=== PATIENT | female | born 1985 | race Caucasian/White ===

== ENCOUNTER 2017-01-07 19:51 | Emergency (ER) | payer OTHER ==
[2017-01-07] MEDS ORDERED: ASPIRIN 81 MG (BABY) CHEWABLE TABLET PO ONE (20:04)
--- NOTE | 2017-01-07 20:07 | EKG ---
[address] [place] [address] Measurements Intervals [place] Rate: 80 P: 36 MI: 151 QRS: 32 QRSD: 108 T: 15 QT: 382 QTc: 418 Interpretive Statements SINUS RHYTHM INCOMPLETE RIGHT BUNDLE BRANCH BLOCK [90+ ms QRS DURATION, TERMINAL R IN V1/V2, 40+ ms S IN I/aVL/V4/V5/V6] No previous ECG available for comparison and no acute injury pattern. Electronically Signed On 01-08-17 10:37:42 MST by Won Cherry MD [email or web address]
[2017-01-07 20:12] VITALS: RESP 20; TEMP 97.4
[2017-01-07] MEDS: NORMAL SALINE 10 ML SYRINGE FLUSH IVP PRN ×2 (20:15→21:08)
[2017-01-07 20:22] LABS: BASOPHILS % (AUTO) 0.8 % (0-1); EOSINOPHILS % (AUTO) 1.9 % (0-8); HEMATOCRIT 40.6 % (37.0-47.0); HEMOGLOBIN 13.8 g/dL (12.0-16.0); IMM GRAN % (AUTO) 0.4 % (0-5); IMM GRAN# (AUTO) 0.05 10*3/UL; LYMPHOCYTES # (AUTO) 3.86 10*3/uL; LYMPHOCYTES % (AUTO) 32.7 % (10-50); MEAN CORPUSCULAR HEMOGLOBIN 27.9 PG (27-31); MEAN PLATELET VOLUME 10.2 FL (7.4-12.2); MONOCYTES # (AUTO) 0.92 10*3/UL (0.3-0.8); MONOCYTES % (AUTO) 7.8 % (5-15); NEUTROPHILS # (AUTO) 6.66 10*3/UL; NEUTROPHILS % (AUTO) 56.4 % (50-80); RDW COEFFICIENT OF VARIATION 14.4 % (11.5-14.5); RED BLOOD COUNT 4.94 10^6/uL (4.20-5.40); WHITE BLOOD COUNT 11.82 10^3/uL (4.8-10.8)
[2017-01-07 20:24] LABS: PLATELET MORPHOLOGY COMMENT NORMAL MORPHOLOGY (NORM)
--- NOTE | 2017-01-07 20:29 | PDOC ---
Chest Pain HPI - General Chief Complaint: Chest Pain Stated Complaint: CHEST PAIN WITH INTERMITTENT SOB Date Seen by Provider: 01/07/17 Time Seen by Provider: 20:00 Source: Patient Exam Limitations: POSITIVE: No limitations Treatment Prior to Arrival: REPORTS: None Nurse's Notes Reviewed & Considered: Yes - History of Present Illness Initial Comments: The patient is a 31-year-old female who presents to the emergency department with left-sided chest pain. She states that she had onset of pain 2-3 days ago. The pain is located in her left upper chest. This pain is worsened when she holds her arm back or when she is laying on either side. The pain is also worsened somewhat with taking deep breath. She denies any associated palpitation, increased shortness of breath, recent cough, nausea or vomiting or any other associated complaints. She states she has had some degree of constant pain for the past several days. She does not have any known history of heart problems. She also denies diabetes, hyperlipidemia or hypertension. She does not have any history of blood clots. She states that she occasionally gets some swelling in her legs primarily in her left leg. - Patient Home Medications Home Medications: Home Medications Escitalopram Oxalate 1 tab PO DAILY #90 tab 01/05/17 Ibuprofen 1 tab PO Q8H PRN #90 tab 01/05/17 Montelukast Sodium [Singulair] 1 tab PO DAILY #30 tab 01/05/17 - Patient Allergies Allergies/Adverse Reactions: Allergies Allergy/AdvReac Type Severity Reaction Status Date / Time No Known Drug Allergies Allergy NOT Verified 01/07/17 19:59 APPLICABLE Past Medical History - heen HEENT History: Denies History Cardiovascular History: Denies History Respiratory History: Denies History Gastrointestinal History: Denies History Genitourinary History: Denies History Endocrine History: Denies History Musculoskeletal History: Fibromyalgia Prosthesis or Implant: No Neurological History: Denies History Blood Disorders: Denies History Psychiatric History: Depression, Anxiety Disorders Female Reproductive History: Other (please comment) Additional Female Reproductive History: Right oopharectomy Obstetrical History: Denies History Cancer History: Denies History In Past Year Been Physically Harmed or Verbally Threatened: No History of MDRO: No Tobacco Use: Never Smoker Alcohol Use: None Substance Use Type: None Previous Surgical History: Yes Type / Date of Surgery: Tonsilectomy. oopharectomy Anesthesia Reactions: No Significant Family History: No pertinent family hx Past Medical History Reviewed: Reviewed - No Changes ROS - Limitations ROS Limitations: No Limitations Constitution: DENIES: Chills, Fever Cardiovascular: REPORTS: Chest Pain. DENIES: Heart Racing, Heart Palpitations, Blood Pressure Problem Respiratory: REPORTS: Hurts To Breathe. DENIES: Cough Non Productive, Cough Productive, Shortness Of Breath Neurological: REPORTS: Denies Neuro Symptoms Gastrointestinal: REPORTS: Other (Some bloating). DENIES: Abdominal Pain, Nausea, Vomitting Musculoskeletal: REPORTS: Lower Extremity Swelling (Occasional lower extremity swelling, left leg greater than the right). DENIES: Calf Pain Eyes: REPORTS: Denies Symptoms ENT: REPORTS: Denies Symptoms, Congestion (Chronic). DENIES: Sore Throat Skin: DENIES: Rash Chest Pain PE - General Appearance General Appearance: REPORTS: Alert, No Acute Distress - HEENT HEENT: POSITIVE: Head Inspection Nml, Eyes Inspection Nml, Pharynx Inspect. Nml - Respiratory Respiratory: REPORTS: No Respiratory Distress, Breath Sounds Normal, Other (She does have tenderness in the left upper anterior chest wall over the costosternal region) - Cardiovascular Cardiovascular: REPORTS: Regular Rate and Rhythm, Heart Sounds Normal Peripheral Pulses: Radial (R): 2+, Radial (L): 2+ - Abdomen Abdomen: Soft: (All Quadrants), Denies Tenderness: (All Quadrants) - Skin Skin: REPORTS: Intact, No Rash - Extremities Extremity: Normal ROM: (All Extremities), Normal Inspection: (All Extremities) - Neurological / Psychological Neurological: POSITIVE: Oriented X3, Motor Normal, Sensation Normal Chest Pain Progress - Results Reviewed by me Xrays/CTs/US Reviewed by me: Yes Discussed with Radiologist: Yes Radiology Findings: Chest x-ray is limited secondary to body habitus however reveals no obvious acute findings per radiologist. Lab Results Reviewed: Yes Lab Results:: Laboratory Results 01/07/17 Range/Units 20:15 WBC 11.82 H (4.8-10.8) 10^3/uL RBC 4.94 (4.20-5.40) 10^6/uL Hgb 13.8 (12.0-16.0) g/dL Hct 40.6 (37.0-47.0) % MCV 82.2 (81-99) FL MCH 27.9 (27-31) PG MCHC 34.0 (33-37) g/dL RDW Std Deviation 42.1 (39-50) fL RDW Coeff of Temo 14.4 (11.5-14.5) % Plt Count 312 (140-350) 10*3/uL MPV 10.2 (7.4-12.2) FL Immature Gran % (Auto) 0.4 (0-5) % Neut % (Auto) 56.4 (50-80) % Lymph % (Auto) 32.7 (10-50) % [place] % (Auto) 7.8 (5-15) % Eos % (Auto) 1.9 (0-8) % Baso % (Auto) 0.8 (0-1) % Immature Gran # (Auto) 0.05 10*3/UL Neut # (Auto) 6.66 10*3/UL Lymph # (Auto) 3.86 10*3/uL [place] # (Auto) 0.92 H (0.3-0.8) 10*3/UL Eos # (Auto) 0.23 10*3/UL Baso # (Auto) 0.10 10*3/UL WBC Morphology Comment Normal morphology (NORM) Plt Morphology Comment Normal morphology (NORM) RBC Morph Comment Normal morphology (NORM) D-Dimer < 0.19 (0.00-0.59) mg/L Sodium 140 (135-145) meq/L Potassium 4.2 (3.8-5.2) meq/L Chloride 103 (98-112) meq/L Carbon Dioxide 26 (23-33) meq/L Anion Gap 11 (5-20) BUN 13 (7-22) mg/dL Creatinine 0.7 (0.50-1.20) mg/dL Estimated GFR > 60 (>60 ml/min/1.73m(2)) BUN/Creatinine Ratio 18.57 (6-20) Glucose 93 (78-110) mg/dL Calculated Osmolality 289.0 (267-292) mOsm/kg Calcium 9.9 (8.7-10.7) mg/dL Total Bilirubin 0.6 (0.3-1.2) mg/dL AST 44 H (8-39) IU/L ALT 54 H (9-52) IU/L Alkaline Phosphatase 81 (38-126) IU/L CK-MB (CK-2) 7.51 H (0.00-5.00) NG/DL Troponin I < 0.012 (< 0.040) ng/mL Total Protein 8.0 (6.1-8.0) g/dL Albumin 4.5 (3.5-4.8) g/dL Globulin 3.5 (2.50-4.10) g/dL Albumin/Globulin Ratio 1.20 L (1.3-2.0) mg/g EKG Interpreted/Reviewed By Me:: Yes EKG Interpretation:: POSITIVE: Normal Sinus Rhythm, Normal Rate, Normal Intervals, Normal Advance, Normal QRS, Normal ST/T - Patient's Progress MDM / ED Course: The initial EKG shows normal sinus rhythm with no acute ST segment or T-wave changes. She did receive aspirin per chest pain protocol. Her troponin and d- dimer are normal and other blood work is essentially unremarkable except for mildly elevated transaminases. Her presentation is consistent with costochondritis. She did receive Toradol 15 mg IV. She is advised to take ibuprofen 600 mg every 6 hours as needed for pain. She will return to the emergency room if increased pain, shortness of breath, productive cough, any worsening or change in symptoms. Follow-up with primary care if no improvement in 3-5 days. - Consult Counseled: POSITIVE: Patient, RE: Lab Results, RE: Radiology Results, RE: DX, RE : Need for F/U Patient Care Time - Estimated PCT Patient Care Time (In Minutes): 25 Vital Signs - VS Reviewed Vital Signs Reviewed: Yes Discharge Clinical Impression: Chest wall pain, Costochondritis Condition: Stable Patient Instructions Given at Discharge: Costochondritis (ED) Additional Instructions: There was no evidence of your heart causing the current pain and there was no evidence of blood clot. The pain is most consistent with inflammation of the joint where the ribs look into the sternum. Recommend ibuprofen 600 mg every 6 hours as needed for pain. Take with food. Return to the emergency room if increased pain or shortness of breath, fever or productive cough, any worsening or change in symptoms. Recommend follow-up with primary care if continued pain in 3-5 days. Follow Up With: ZOFIA BERRIOS [Primary Care Provider] -
[2017-01-07 20:30] LABS: ASPARTATE AMINO TRANSFERASE 44 IU/L (8-39); BILIRUBIN,TOTAL 0.6 mg/dL (0.3-1.2); BLOOD UREA NITROGEN 13 mg/dL (7-22); BUN/CREATININE RATIO 18.57 (6-20); CALCIUM 9.9 mg/dL (8.7-10.7); CHLORIDE 103 meq/L (98-112); CREATININE 0.7 mg/dL (0.50-1.20); EST GLOMERULAR FILTRATION > 60 (>60 ml/min/1.73m(2)); GLUCOSE 93 mg/dL (78-110); POTASSIUM 4.2 meq/L (3.8-5.2); SODIUM 140 meq/L (135-145)
[2017-01-07] MEDS ORDERED: KETOROLAC 15 MG/1 ML VIAL IVP ONE (20:41)
--- NOTE | 2017-01-07 20:41 | DI ---
AP CHEST X-RAY, 01/07/2017 8:04 PM : Clinical History: Chest pain. Previous Exam: None at this facility. The patient is severely morbidly obese. This detracts from the overall quality and significantly limi ts the diagnostic quality of the exam with respect to fine detail structures. There is no acute soft tissue or bony abnormality. Heart size is probably normal based on the size of the patient. Lungs are clear. Mediastinal structures are normal. There are no pulmonary nodules. Reading: Normal chest x-ray based on the limitations imposed by the size of the patient.
[2017-01-07 20:42] LABS: CREATINE KINASE MB 7.51 NG/DL (0.00-5.00)
[2017-01-07 20:43] LABS: TROPONIN I < 0.012 ng/mL (< 0.040)
== END 2017-01-07 21:15 | disposition home or self-care (01) ==
LOC: ER 19:51
DX: R07.89 Other chest pain (principal); M94.0 Chondrocostal junction syndrome [Tietze]; R06.02 Shortness of breath
CPT/HCPCS: 71010; 80053; 82553; 84484; 85025; 85379; 93005; 93010; 96374; 99284; J1885

== ENCOUNTER → 2017-01-25 | Outpatient (CLI) | payer OTHER | LOC: MOB LAB 11:38 | PROVIDERS: ATTEND Physician Assistant | DX: R10.84 Generalized abdominal pain (principal) | CPT/HCPCS: 87088 ==

== ENCOUNTER → 2017-01-25 | Outpatient (CLI) | payer OTHER ==
[2017-01-25 13:26] LABS: BASOPHILS # (AUTO) 0.06 10*3/UL; BASOPHILS % (AUTO) 0.6 % (0-1); EOSINOPHILS # (AUTO) 0.25 10*3/UL; EOSINOPHILS % (AUTO) 2.4 % (0-8); HEMATOCRIT 42.8 % (37.0-47.0); HEMOGLOBIN 14.3 g/dL (12.0-16.0); LYMPHOCYTES # (AUTO) 3.02 10*3/uL; MEAN CORPUSCULAR HEMOGLOBIN 27.8 PG (27-31); MEAN CORPUSCULAR HGB CONC 33.4 g/dL (33-37); MEAN PLATELET VOLUME 10.3 FL (7.4-12.2); MONOCYTES # (AUTO) 0.64 10*3/UL (0.3-0.8); MONOCYTES % (AUTO) 6.1 % (5-15); NEUTROPHILS # (AUTO) 6.56 10*3/UL; RED BLOOD COUNT 5.15 10^6/uL (4.20-5.40)
[2017-01-25 13:30] LABS: PLATELET MORPHOLOGY COMMENT NORMAL MORPHOLOGY (NORM); RBC MORPHOLOGY COMMENT NORMAL MORPHOLOGY (NORM); WBC MORPHOLOGY COMMENT NORMAL MORPHOLOGY (NORM)
[2017-01-25 13:35] LABS: BLOOD UREA NITROGEN 13 mg/dL (7-22); BUN/CREATININE RATIO 18.57 (6-20); C-REACTIVE PROTEIN 2.4 mg/dL (0.0-0.9); CALCIUM 9.8 mg/dL (8.7-10.7); EST GLOMERULAR FILTRATION > 60 (>60 ml/min/1.73m(2)); LIPASE 131 IU/L (23-300); SERUM ALBUMIN 4.7 g/dL (3.5-4.8)
--- NOTE | 2017-01-25 14:22 | DI ---
XR ABDOMEN KUB UPRIGHT,01/25/2017 12:54 PM: Clinical History: Abdominal pain Previous Exam: None at this facility. Findings: 5 views of the abdomen are obtained, and demonstrate a nonobstructive bowel gas pattern. There is no subdiaphragmatic free air. There are no pathologic calcifications. No fractures are seen. Impression: No acute disease.
== END ==
LOC: MOB RAD 13:12
PROVIDERS: ATTEND Physician Assistant
DX: R10.84 Generalized abdominal pain (principal)
CPT/HCPCS: 36415; 74020; 80053; 83690; 84439; 84443; 85025; 86140; 87088

== ENCOUNTER → 2017-01-26 | Outpatient (CLI) | payer OTHER ==
--- NOTE | 2017-01-26 08:40 | DI ---
US ABDOMEN LIMITED,01/26/2017 7:41 AM: Clinical History: Abdominal pain Previous Exam: None at this facility. Findings: Multiple grayscale and color Doppler sonographic images are obtained through the abdomen demonstratin g diffuse fatty infiltration of the liver. The gallbladder contains multiple stones and the gallbladd er wall measures 3 mm. Negative sonographic Romo's sign is obtained. The common bile duct measures 5 mm. The right kidney measures 10.9 cm in length without hydronephrosis nor nephrolithiasis. The renal cor shira is normal. The aorta is also within normal limits. The pancreas is not well seen. Impression: 1. Cholelithiasis. 2. Fatty liver.
[2017-01-28 08:46] LABS: TTG AB IGA <1.2 U/mL (())
[2017-02-01 22:01] LABS: IGA, SERUM 100 mg/dL (61 - 356)
== END ==
LOC: US 07:35
PROVIDERS: ATTEND Physician Assistant
DX: R10.84 Generalized abdominal pain (principal); K76.0 Fatty (change of) liver, not elsewhere classified; K80.20 Calculus of gallbladder without cholecystitis without obstruction
CPT/HCPCS: 36415; 76705; 82784; 83516; 86256; 86816

== ENCOUNTER 2017-02-08 06:50 | Day surgery (SDC) | payer OTHER ==
[~2017-02-08 06:50] MED LIST: ATROPINE SULFATE 0.4 MG/1 ML VIAL IVP PRN; HYDROmorphone 2 MG/1 ML IVP PRN; LIDOCAINE W/ SODIUM BICARB 0.5 ML SYR ONE; Lactated Ringers 1,000 ML PRIMARY IV ONE; NORMAL SALINE 10 ML SYRINGE FLUSH IVP PRN; ONDANSETRON 4 MG/2 ML VIAL IVP PRN; Ondansetron ODT Tab 8 MG TAB PO PRN; fentaNYL Inj 100 MCG/2 ML VIAL IVP PRN
[2017-02-08] MEDS ORDERED: Lactated Ringers 1,000 ML PRIMARY IV SCH ×3 (07:00→09:45)
[2017-02-08] MEDS ORDERED: Sodium Chloride 0.9% vial 50 ML ONE (07:17)
[2017-02-08] MEDS ORDERED: BUPIVACAINE 0.25% W/ EPI - 10 ML VIAL ONE (07:17)
[2017-02-08] MEDS ORDERED: Iothalamate Meglumine 30 ML VIAL IV ONE (07:17)
[2017-02-08] MEDS ORDERED: MIDAZOLAM 5 MG/1 ML ONE (07:18)
[2017-02-08] MEDS ORDERED: LIDOCAINE MPF 2% - 5 ML (20 MG/1 ML) ONE ×2 (07:18→09:16)
[2017-02-08] MEDS ORDERED: fentaNYL Inj 250 MCG/5 ML VIAL ONE (07:18)
[2017-02-08] MEDS ORDERED: Sodium Chloride 0.9% vial 10 ML ONE (07:20)
[2017-02-08] MEDS ORDERED: ROCURONIUM 10 MG/1 ML - 5 ML VIAL IVP ONE (07:21)
[2017-02-08] MEDS ORDERED: ceFAZolin Inj 3 GM in Sodium Chloride 0.9% 100 ML IV ONE (07:30)
[2017-02-08] MEDS ORDERED: FAMOTIDINE 20 MG/2 ML VIAL IVP ONE (07:44)
[2017-02-08] MEDS ORDERED: SUCCINYLCHOLINE CHLORIDE 20 MG/1 ML - 10 ML ONE (07:58)
[2017-02-08] MEDS ORDERED: KETAMINE 100 MG/1 ML - 5 ML ONE (07:59)
[2017-02-08] MEDS ORDERED: DEXAMETHASONE PF 10 MG/1 ML VIAL ONE (08:23)
[2017-02-08] MEDS ORDERED: ONDANSETRON 4 MG/2 ML VIAL ONE (08:50)
[2017-02-08] MEDS ORDERED: NEOSTIGMINE 1 MG/1 ML - 10 ML ONE (08:50)
[2017-02-08] MEDS ORDERED: GLYCOPYRROLATE 0.2 MG/1 ML VIAL ONE (08:50)
[2017-02-08] MEDS ORDERED: KETOROLAC 30 MG/1 ML VIAL ONE (08:58)
[2017-02-08] MEDS ORDERED: SUGAMMADEX SODIUM 200 MG/2 ML VIAL IV ONE (09:11)
--- NOTE | 2017-02-08 09:34 | GEN.OPNOTE ---
Operative Note Surgery Date: 02/08/17 Preoperative Diagnosis: Chronic cholecystitis and cholelithiasis. Postoperative Diagnosis: Chronic cholecystitis and cholelithiasis. Procedure: Laparoscopic cholecystectomy with intraoperative cholangiogram. Surgeon: Leonardo Sheffield MD Front End Assistant: Joon Multani MD Anesthesia Provider: Edith Silva CRNA Anesthesia Type: General Estimated Blood Loss (mL): 10 Fluids: 1900 mL of crystalloid. 3 g of IV Ancef at the start of the procedure. 15 mg of IV Toradol at the end of the procedure. Pathology: Specimen to pathology. Indications: Symptomatic gallstones. Findings: Gallbladder containing multiple gallstones. Intraoperative cholangiogram was difficult to obtain but there was flow into the duodenum with a normal sized duct. No filling defects identified. The bile duct was seen proximal to the cystic duct. The branching pattern was not well demonstrated. Complications: None. Operative Summary: The patient was taken to the operating room and placed on the operating table in the supine position. Following induction of general anesthetic the abdomen was prepped and draped in a sterile fashion. A surgical timeout was done. The infraumbilical region was infiltrated with 1/4% Marcaine with epinephrine. An incision was made. The abdominal wall was elevated. A Veres needle was placed without apparent injury and a pneumoperitoneum was induced. The veres needle was withdrawn. A 10 mm trocar was placed without apparent injury and a laparoscope was inserted. Under direct visualization and following Marcaine injection a 10 mm trocar was placed in the epigastrium and 2x5 mm trochars were placed along the costal margin. The gallbladder was grasped and elevated. Blunt dissection was used to free the cystic duct. A clip was placed along the neck of the gallbladder. A hole was made in the side wall of the cystic duct. A Cortez cholangiocatheter was inserted. Intraoperative cholangiogram was taken and was normal as previously dictated. The Cortez catheter was withdrawn. 2 clips were placed on the distal cystic duct and the duct was divided. The cystic artery was isolated. 2 clips were placed proximally and one distally and the artery was divided. The gallbladder was taken from the hepatic bed using electrocautery. Hemostasis was assured. Appropriate irrigation and suctioning were performed. Final check for hemostasis was made. 5 mL of Marcaine was placed in the gallbladder fossa and 5 over the dome of the liver. The laparoscope was moved to the epigastric port. The gallbladder was placed in an Endopouch. The gallbladder was grasped with a large grasper and brought up to the umbilical trocar site. The fascial defect at the umbilicus was slightly increased in size. The gallbladder was brought out through the trocar site without difficulty. The fascial defect at the umbilicus was closed with a running 0 Vicryl. A final check for hemostasis was made. The CO2 was burped from the abdominal cavity. The trochars were removed under direct visualization. No other trocar sites required fascial closure. The skin wounds were closed with inverted interrupted or running subcuticular 4-0 Monocryl followed by Mastisol Steri- Strips and an appropriate dressing. Patient tolerated the procedure well without complication. Patient was taken to the recovery room in stable condition. All counts were correct. At the end of the procedure wall pressing on the abdomen to remove the CO2 there was a palpable mass which seemed to be in the abdominal wall. It was to the right of the umbilicus. The scope was reinserted and there was no intra- abdominal pathology. We will check this on her postoperative visit. Consider CT abdomen and pelvis.
--- NOTE | 2017-02-08 09:34 | DI ---
OPERATIVE CHOLANGIOGRAM, 02/08/2017 8:00 AM : Clinical History: Cholelithiasis. 3 films are submitted. Contrast is present on all films with reflux into the duodenum. There is no re tained stone in the common hepatic or common bile ducts. There is preferential filling of the duodenu m over filling of the intrahepatic biliary tree indicating a widely patent sphincter of Oddie. The li mited visualized portions of the intrahepatic biliary tree are normal. Reading: Normal operative cholangiogram.
[2017-02-08] MEDS ORDERED: HYDROcodone-APAP 7.5 MG-325 MG TABLET PO PRN (09:41)
[2017-02-08] MEDS ORDERED: MORPHINE SULFATE 2 MG/1 ML IVP PRN (09:41)
[2017-02-08] MEDS ORDERED: NORMAL SALINE 10 ML SYRINGE FLUSH IVP PRN ×2 (09:41→09:43)
[2017-02-08] MEDS ORDERED: ONDANSETRON 4 MG/2 ML VIAL IVP PRN (09:41)
[2017-02-08] MEDS ORDERED: Lactated Ringers 1,000 ML PRIMARY IV ONE (10:11)
[2017-02-08] MEDS ORDERED: HYDROcodone-APAP 7.5 MG-325 MG TABLET PO ONE (10:32)
[2017-02-08] MEDS ORDERED: Prochlorperazine Edisylate Inj 10mg/2ml vial ONE (11:33)
[2017-02-08 14:18] VITALS: TEMP 98
[2017-02-08 14:23] VITALS: RESP 13
== END 2017-02-08 12:55 | disposition home or self-care (01) ==
LOC: SDSC 06:50
PROVIDERS: ATTEND Surgery
DX: K80.10 Calculus of gallbladder with chronic cholecystitis without obstruction (principal)
CPT/HCPCS: 47563; 74300; A4216; J1885; J2704; J3010; Q9961; J0330; J0690; J0780; J1100; J2001; J2250; J2405; J2710; J7050; J7120